=== PATIENT | female | born 1950 | race Caucasian/White ===

== ENCOUNTER 2025-01-29 12:59 | Day surgery (SDC) | payer MEDICARE ==
[2025-01-29] MEDS ORDERED: Sodium Chloride 0.9(Preservative Free) 10 ML IJ ONE (13:00)
[2025-01-29] MEDS ORDERED: LIDOCAINE HCL 1% 50 MG/5 ML VL IJ ONE (13:00)
[2025-01-29] MEDS ORDERED: methylPREDNISolone acetate IM ONE (13:00)
[2025-01-29] MEDS ORDERED: Robinul 0.4 MG/2 ML IV ONE (13:47)
[2025-01-29] MEDS ORDERED: Lactated Ringers 1,000 ML IV ONE (13:58)
[2025-01-29] MEDS ORDERED: propofoL IV ONE (14:55)
--- NOTE | 2025-01-29 17:20 | XRAY ---
Indication: Lumbar GUERLINE. Intraoperative fluoroscopy provided for 27 seconds. 2 digital spot image submitted for interpretation demonstrates posterior needle tip projecting just posterior to lumbosacral junction interspace. Small amount of contrast injected for needle tip placement. Correlate with intraoperative findings/report.
--- NOTE | 2025-01-29 17:35 | XRAY ---
27 seconds of fluoroscopy were used in surgery for a lumbar GUERLINE.
== END 2025-01-29 15:45 | disposition home or self-care (01) ==
LOC: SDC-PAIN 12:59
PROVIDERS: ATTEND Psychiatry & Neurology Pain Medicine
DX: M54.16 Radiculopathy, lumbar region (principal)